=== PATIENT | male | born 1985 | race African-American/Black ===

== ENCOUNTER 2017-03-26 21:22 | Emergency (ER) | payer BC ==
[~2017-03-26] VITALS: Ht 167.6 cm; Wt 86.2 kg
[~2017-03-26 21:22] MED LIST: BC POWDER PACK1 EAC1; MECLIZINE HCL25 M1 PO; NOHOMEMEDICATIONS; NORCO 5-325 TA1 EACH PO; PEPCID40 MG PO; PERCOCET PO; PHENERGAN 25 MG25 M1 PO; ULTRAM 50MG TAB50 MG PO; VICODIN ES 7.51 EACH PO; XANAX 0.5 MG0.5 MG PO; ZOFRAN ODT4 MG PO
[2017-03-26] MEDS ORDERED: PENICILLIN V P500 MG PO (21:37)
[2017-03-26] MEDS ORDERED: HYDROCODONE-AP1 EAC6 PO (21:38)
== END 2017-03-26 22:15 | disposition home or self-care (01) ==
LOC: ER 21:22
DX: K02.9 Dental caries, unspecified (principal); F17.210 Nicotine dependence, cigarettes, uncomplicated; Z85.038 Personal history of other malignant neoplasm of large intestine

== ENCOUNTER 2017-07-22 12:13 | Emergency (ER) | payer BC ==
[~2017-07-22] VITALS: Ht 167.6 cm; Wt 83.9 kg
[2017-07-22 12:13] VITALS: BP 148/88
[~2017-07-22 12:13] MED LIST changes: +HYDROCODONE-AP1 EAC6 PO; +PENICILLIN V P500 MG PO
[2017-07-22] MEDS ORDERED: MOBIC7.5 MG PO (13:13)
[2017-07-22] MEDS ORDERED: PENICILLIN V P500 MG PO (13:13)
[2017-07-22] MEDS ORDERED: HYDROCODONE-AP1 EAC6 PO (13:13)
== END 2017-07-22 13:34 | disposition home or self-care (01) ==
LOC: ER 12:13
DX: S02.5XXA Fracture of tooth (traumatic), initial encounter for closed fracture (principal); F17.210 Nicotine dependence, cigarettes, uncomplicated; Z85.038 Personal history of other malignant neoplasm of large intestine; X58.XXXA Exposure to other specified factors, initial encounter; Y93.89 Activity, other specified; Y92.89 Other specified places as the place of occurrence of the external cause; Y99.8 Other external cause status

== ENCOUNTER 2020-09-02 00:24 | Emergency (ER) | payer OTHER ==
[~2020-09-02] VITALS: Ht 167.6 cm; Wt 86.2 kg
--- NOTE | ~2020-09-02 | EMS ---
[facility] [address] [place] [address] EMS Patient Care Report Name: KEVIN REILLY Room #: REG SHINE Poe#: [id number] Admission: 09/02/20 Attend Phys: Discharge: Date of : 89 Report #: [id number] THIS REPORT FOR: //name// Report Transmitted: 09/02/2020 00:38 EMS Care Summary [place], [place]/[facility] Incident [id number] @ 09/02/2020 00:02 Incident Location [address] [place] [address] Patient KEVIN REILLY Male, 34 Years 1985 Patient Address [address], [place] [address] Patient History Appendectomy, Patient Allergies No known allergies, Patient Medications None Reported, Chief Complaint ABD PAIN Disposition Transported No Lights/[place] Reason Abdominal Pain/Problems Transported To [facility] Narrative DISPATCHED EMERGENCY ON AN ABD PAIN. 34 Y/O MALE SITTING ON CHAIR IN LIVING ROOM APPEARING IN NO IMMEDIATE DISTRESS. GCS 15 AND A/OX4. CONSENTS FOR TX AND TRANSPORTATION. PT STATES THAT HE HAS HAD ABD X3 DAYS THAT HAS INCREASINGLY BECOME WORSE. ALSO COMPLAINS OF NAUSEA AND VOMITING. STATES THAT THE LAST TIME [facility] [address] [place] [address] EMS Patient Care Report Name: KEVIN REILLY Room #: REG SHINE Poe#: [id number] Admission: 09/02/20 Attend Phys: Discharge: Date of : 89 Report #: [id number] THIS HAPPENED HE HAD A TUMOR ON HIS COLON AND HAD PART OF IS COLON AND APPENDIX REMOVED. SHARP/CONSTANT PAIN AT 10 TO UPPER ABD. ASSISTED WITHOUT INCIDENT TO STRETCHER IN AMBULANCE. V/S'S OBTAINED. TRANSFERRED TO [facility]. REASSESSED ENROUTE. REMAINS GCS 15 AND ALERT. 2ND SET V/S'S OBTAINED. PAIN REMAINS UNCHANGED AT 10. REPORT CALLED TO HOSPITAL. MOVED WITHOUT INCIDENT TO ER HOSPITAL BED 7. PT CARE TRANSFERRED TO ED RN. Initial Vitals @00:15P: 83,R: 18,BP: 127/91,Pain: 10/10,GCS: 15,CO: 10,SpO2: 99,Revised Trauma: 12, @00:10P: 88,R: 20,BP: 140/80,Pain: 10/10,GCS: 15,CO: 16,SpO2: 99,Revised Trauma: 12, Assessments @00:09MENTAL:Person Oriented,Time Oriented,Place Oriented,Event Oriented,SKIN:HEENT:Head/Face: No Abnormalities,Neck/Airway: No Abnormalities,LUNG SOUNDS:General: Vomiting,Left Upper: Tenderness,General: Nausea,Right Upper: Tenderness,Left Lower: No Abnormalities,Right Lower: No Abnormalities,ABDOMEN:General: Vomiting,Left Upper: Tenderness,General: Nausea,Right Upper: Tenderness,Left Lower: No Abnormalities,Right Lower: No Abnormalities,PELVIS//GI:EXTREMITIES:Capillary Refill: Right Upper: < 2 Sec,Capillary Refill: Left Upper: < 2 Sec,Left Arm: No Abnormalities,Right Arm: No Abnormalities,Left Leg: No Abnormalities,Right Leg: No Abnormalities,PULSE:Radial: 2+ Normal,NEURO: Impression Abdominal Pain Procedures @00:09ALS AssessmentResponse: UnchangedSucceeded@00:10StretcherResponse: Unchanged Timeline 23:59,Dispatch Notified 00:02,Dispatched 00:02,En Route 00:08,On Scene 00:09,At Patient 00:09,ALS Assessment,Response: UnchangedSucceeded, 00:10,Stretcher,Response: Unchanged 00:10,BP: 140/80 M,PULSE: 88,RR: 20 R,SPO2: 99 Ox,ETCO2: ,BG: ,PAIN: 10,GCS: 15, 00:11,Depart Scene 00:15,BP: 127/91 M,PULSE: 83,RR: 18 R,SPO2: 99 Ox,ETCO2: ,BG: ,PAIN: 10,GCS: 15, 00:22,At Destination [address] [address] EMS Patient Care Report Name: KEVIN REILLY Room #: REG [facility].#: [id number] Admission: 09/02/20 Attend Phys: Discharge: Date of : 89 Report #: [id number] 00:33,Call Closed 23:59,Call Received Disclaimer v1.1 Copyright 2020 [employer] This EMS Care Summary contains data elements from the applicable legal record (which may be displayed differently). It is designed to provide pertinent information for the following purposes: continuity of care, clinical quality, and state data reporting. The complete legal record is available to ED staff and administrators of the receiving hospital in [facility]'s Patient Tracker. All data is provided "as is."
[~2020-09-02 00:24] MED LIST changes: +MOBIC7.5 MG PO
[2020-09-02 01:36] LABS: ABSOLUTE NEUTROPHILS 9.9 thou/uL (1.4-8.2); EOSINOPHILS 3.3 % (0.0-3.0); HEMATOCRIT 39.8 % (42.0-52.0); MCH 29.7 pg (26.0-34.0); MCHC 32.8 g/dL (28.0-37.0); MCV 90.7 fL (80.0-100.0); MONOCYTES 4.2 % (1.0-8.0); PLATELET COUNT 222 thou/uL (150-400); POLYS 71.5 % (36.0-66.0); RBC 4.39 mil/uL (4.50-6.00); RDW 15.1 % (10.5-14.5); WBC 13.8 thou/uL (4.0-11.0)
[2020-09-02 01:42] LABS: CALCIUM 9.7 mg/dL (8.5-10.1); CREATININE 1.2 mg/dL (0.7-1.3)
[2020-09-02 01:48] LABS: ALBUMIN 4.2 g/dL (3.4-5.0); TOTAL BILIRUBIN 0.2 mg/dL (0.2-1.0)
[2020-09-02 02:11] LABS: URINE BILIRUBIN NEGATIVE (Negative); URINE BLOOD NEGATIVE (Negative); URINE CLARITY SL CLOUDY; URINE COLOR YELLOW; URINE GLUCOSE-RANDOM* NEGATIVE (Negative); URINE KETONES NEGATIVE (Negative); URINE LEUKOCYTES-REFLEX NEGATIVE (Negative); URINE NITRITE-REFLEX NEGATIVE (Negative); URINE PROTEIN (DIPSTICK) NEGATIVE (Negative); URINE SPECIFIC GRAVITY 1.025 (1.005-1.035); URINE UROBILINOGEN 0.2 E.U./dl (0.2-1.0)
[2020-09-02] MEDS ORDERED: LEVSIN0.125 MG PO (03:35)
[2020-09-02] MEDS ORDERED: ZOFRAN ODT4 MG PO (03:35)
[2020-09-02 03:41] VITALS: BP 129/77
== END 2020-09-02 03:44 | disposition home or self-care (01) ==
LOC: ER 00:24
PROVIDERS: Emergency Medicine
DX: R10.12 Left upper quadrant pain (principal); F17.210 Nicotine dependence, cigarettes, uncomplicated

== ENCOUNTER 2021-01-30 07:22 | Emergency (ER) | payer OTHER ==
[~2021-01-30] VITALS: Ht 170.2 cm; Wt 88.5 kg
[~2021-01-30 07:22] MED LIST changes: +LEVSIN0.125 MG PO
[2021-01-30 09:11] LABS: CALCIUM 8.7 mg/dL (8.5-10.1); CREATININE 1.3 mg/dL (0.7-1.3); POTASSIUM 3.9 mmol/L (3.5-5.1)
[2021-01-30 09:12] LABS: ABSOLUTE NEUTROPHILS 5.3 thou/uL (1.4-8.2); BASOPHILS 0.4 % (0.0-2.0); EOSINOPHILS 0.5 % (0.0-3.0); HEMATOCRIT 37.1 % (42.0-52.0); HEMOGLOBIN 12.5 gm/dL (14.0-18.0); LYMPHOCYTES 6.9 % (24.0-44.0); MCH 29.7 pg (26.0-34.0); MCHC 33.7 g/dL (28.0-37.0); MCV 88.2 fL (80.0-100.0); MONOCYTES 12.5 % (1.0-8.0); PLATELET COUNT 195 thou/uL (150-400); POLYS 79.7 % (36.0-66.0); RDW 14.6 % (10.5-14.5); WBC 6.7 thou/uL (4.0-11.0)
[2021-01-30 09:19] LABS: URINE BILIRUBIN NEGATIVE (Negative); URINE BLOOD 1+ (Negative); URINE CLARITY CLEAR; URINE COLOR YELLOW; URINE GLUCOSE-RANDOM* NEGATIVE (Negative); URINE KETONES TRACE (Negative); URINE LEUKOCYTES-REFLEX NEGATIVE (Negative); URINE NITRITE-REFLEX NEGATIVE (Negative); URINE PROTEIN (DIPSTICK) TRACE (Negative); URINE SPECIFIC GRAVITY >= 1.030 (1.005-1.035); URINE UROBILINOGEN 0.2 E.U./dl (0.2-1.0)
[2021-01-30 09:40] LABS: SQUAMOUS 0-3 Few /LPF (0-3)
[2021-01-30 09:41] LABS: BACTERIA-REFLEX 1-9 Few /HPF (None Seen); CASTS None Seen /LPF (None Seen); CRYSTALS None Seen /LPF (None Seen); MUCUS >6 Heavy strn/LPF (None Seen); URINE RBC 1-2 Rare /HPF (NONE SEEN); URINE WBC-REFLEX 0-5 Rare /HPF (0-5)
[2021-01-30] MEDS ORDERED: NAPROSYN500 MG PO (10:32)
[2021-01-30 10:53] VITALS: BP 104/77
== END 2021-01-30 10:55 | disposition home or self-care (01) ==
LOC: ER 07:22
PROVIDERS: Emergency Medicine
DX: U07.1 COVID-19 (principal); M54.5 Low back pain; F17.210 Nicotine dependence, cigarettes, uncomplicated; Z90.49 Acquired absence of other specified parts of digestive tract

== ENCOUNTER 2021-08-07 05:31 | Emergency (ER) | payer OTHER ==
[~2021-08-07] VITALS: Ht 170.2 cm; Wt 88.5 kg
[~2021-08-07 05:31] MED LIST changes: +NAPROSYN500 MG PO
[2021-08-07] MEDS ORDERED: IBUPROFEN IB200 MG PO (05:47)
[2021-08-07 06:34] LABS: ABSOLUTE NEUTROPHILS 10.3 thou/uL (1.4-8.2); BASOPHILS 0.7 % (0.0-2.0); EOSINOPHILS 1.1 % (0.0-3.0); HEMATOCRIT 38.4 % (42.0-52.0); HEMOGLOBIN 12.9 gm/dL (14.0-18.0); LYMPHOCYTES 14.3 % (24.0-44.0); MCH 29.4 pg (26.0-34.0); MCHC 33.5 g/dL (28.0-37.0); MCV 87.6 fL (80.0-100.0); MONOCYTES 4.2 % (1.0-8.0); PLATELET COUNT 255 thou/uL (150-400); POLYS 79.7 % (36.0-66.0); RBC 4.39 mil/uL (4.50-6.00); RDW 14.4 % (10.5-14.5)
[2021-08-07 06:46] LABS: CALCIUM 9.2 mg/dL (8.5-10.1); POTASSIUM 3.5 mmol/L (3.5-5.1)
[2021-08-07 06:56] LABS: ALBUMIN 3.9 g/dL (3.4-5.0); TOTAL BILIRUBIN 0.3 mg/dL (0.2-1.0); TOTAL PROTEIN 7.5 g/dL (6.4-8.2)
[2021-08-07] MEDS ORDERED: NAPROSYN500 MG PO (07:19)
[2021-08-07 07:26] VITALS: BP 133/88
== END 2021-08-07 07:32 | disposition home or self-care (01) ==
LOC: ER 05:31
PROVIDERS: Emergency Medicine
DX: R10.817 Generalized abdominal tenderness (principal); F17.210 Nicotine dependence, cigarettes, uncomplicated; Z86.16 Personal history of COVID-19

== ENCOUNTER 2021-08-14 20:09 | Emergency (ER) | payer OTHER ==
[~2021-08-14] VITALS: Ht 167.6 cm; Wt 89.8 kg
[~2021-08-14 20:09] MED LIST changes: +IBUPROFEN IB200 MG PO
[2021-08-14 20:11] VITALS: BP 139/90
[2021-08-14 21:28] LABS: ABSOLUTE NEUTROPHILS 7.2 thou/uL (1.4-8.2); BASOPHILS 0.8 % (0.0-2.0); EOSINOPHILS 3.5 % (0.0-3.0); HEMATOCRIT 36.3 % (42.0-52.0); HEMOGLOBIN 12.5 gm/dL (14.0-18.0); LYMPHOCYTES 27.2 % (24.0-44.0); MCH 30.2 pg (26.0-34.0); MCHC 34.4 g/dL (28.0-37.0); MCV 87.8 fL (80.0-100.0); MONOCYTES 5.3 % (1.0-8.0); PLATELET COUNT 257 thou/uL (150-400); POLYS 63.2 % (36.0-66.0); RBC 4.13 mil/uL (4.50-6.00); RDW 14.5 % (10.5-14.5); WBC 11.5 thou/uL (4.0-11.0)
[2021-08-14 21:36] LABS: CALCIUM 8.9 mg/dL (8.5-10.1); CREATININE 0.9 mg/dL (0.7-1.3); POTASSIUM 3.6 mmol/L (3.5-5.1)
[2021-08-14 21:42] LABS: ALBUMIN 3.9 g/dL (3.4-5.0); TOTAL BILIRUBIN 0.3 mg/dL (0.2-1.0); TOTAL PROTEIN 7.3 g/dL (6.4-8.2)
[2021-08-14] MEDS ORDERED: ZOFRAN ODT4 MG PO (22:33)
--- NOTE | 2021-08-15 07:39 | EKG ---
[place] [address] [facility] [place] [address] ELECTROCARDIOGRAM REPORT Name: KEVIN REILLY Room #: DEP Lui#: [id number] Admission: 08/14/21 Attend Phys: Discharge: 08/14/21 Date of : 89 Report #: [id number] [facility] ED Test Date: 2021-08-14 Test Time: 20:40:00 Pat Name: KEVIN REILLY Department: Room: Gender: M Doula: VINAYAK : 1985 Requested By: Jonny King Order Number: [id number] MD: Owen Duggan Measurements Intervals [place] Rate: 76 P: 60 CO: 134 QRS: 69 QRSD: 108 T: 24 QT: 376 QTc: 423 Interpretive Statements Sinus rhythm ST elev, probable normal early repol pattern Compared to ECG 03/18/2016 15:24:39 No significant changes Electronically Signed On 08-15-2021 7:39:15 [employer] by Owen Duggan [email or web address] <ELECTRONICALLY SIGNED> By: Owen Duggan MD, [facility] 08/15/21 [id number] Owen Duggan MD, FACC /EPI
== END 2021-08-14 22:49 | disposition home or self-care (01) ==
LOC: ER 20:09
PROVIDERS: Physician Assistant
DX: R10.812 Left upper quadrant abdominal tenderness (principal); Z20.822 Contact with and (suspected) exposure to COVID-19; F17.210 Nicotine dependence, cigarettes, uncomplicated; Z98.890 Other specified postprocedural states